=== PATIENT | female | born 1995 | race Two or more races ===

== ENCOUNTER 2022-02-26 09:21 | Emergency (ER) | payer BC, MEDICAID, OTHER ==
[~2022-02-26] VITALS: Ht 160 cm; Wt 54.4 kg
[2022-02-26 09:38] VITALS: BP 129/66
[2022-02-26] MEDS ORDERED: METF-370 PO (12:06)
[2022-02-26] MEDS ORDERED: IBUP600T27 PO (12:06)
[2022-02-26] MEDS ORDERED: METH500T22 PO (12:10)
== END 2022-02-26 12:19 | disposition home or self-care (01) ==
LOC: ER 09:21
DX: S16.1XXA Strain of muscle, fascia and tendon at neck level, initial encounter (principal); S93.402A Sprain of unspecified ligament of left ankle, initial encounter; V43.52XA Car driver injured in collision with other type car in traffic accident, initial encounter; Y93.89 Activity, other specified; Y92.410 Unspecified street and highway as the place of occurrence of the external cause; Y99.8 Other external cause status
CPT/HCPCS: 72040; 73610

== ENCOUNTER 2022-03-09 15:58 | Emergency (ER) | payer BC, MEDICAID ==
[~2022-03-09] VITALS: Ht 160 cm; Wt 54.4 kg
[~2022-03-09 15:58] MED LIST: IBUP600T27 PO; METH500T22 PO
[2022-03-09 16:09] VITALS: BP 114/85
== END 2022-03-09 20:44 | disposition left against medical advice (07) ==
LOC: ER 15:58
DX: R51.9 Headache, unspecified (principal); Z53.21 Procedure and treatment not carried out due to patient leaving prior to being seen by health care provider

== ENCOUNTER 2022-03-10 10:17 | Emergency (ER) | payer BC, MEDICAID ==
[~2022-03-10] VITALS: Ht 160 cm; Wt 54.4 kg
[2022-03-10 12:24] VITALS: BP 132/76
== END 2022-03-10 14:04 | disposition home or self-care (01) ==
LOC: ER 10:17
DX: S39.012A Strain of muscle, fascia and tendon of lower back, initial encounter (principal); V49.69XA Unspecified car occupant injured in collision with other motor vehicles in traffic accident, initial encounter; Y93.89 Activity, other specified; Y92.410 Unspecified street and highway as the place of occurrence of the external cause; Y99.8 Other external cause status
CPT/HCPCS: 70450; 72131; 81025